=== PATIENT | male | born 1995 | race Caucasian/White ===

== ENCOUNTER 2017-03-24 20:03 | Emergency (ER) | payer OTHER ==
[2017-03-24] MEDS ORDERED: KETOROLAC 60 MG/2 ML VIAL IVP STA (20:43)
[2017-03-24] MEDS ORDERED: ONDANSETRON 4 MG/2 ML VIAL IVP STA (20:43)
[2017-03-24] MEDS ORDERED: LOPERAMIDE 2 MG CAPSULE PO STA ×2 (20:43→22:13)
[2017-03-24] MEDS ORDERED: SODIUM CHLORIDE 0.9% 1,000 ML IV ONE (20:43)
--- NOTE | 2017-03-24 20:45 | ED Physician Documentation ---
PD HPI NVD - Stated complaint Stated Complaint: ABD PX/VOMITING - Chief complaint Chief Complaint: Abd Pain - History obtained from History obtained from: Patient - History of Present Illness Timing - onset: Other (Previously healthy 22-year-old gentleman who at about 1130 this morning ate lobster bisque, clam chowder, salmon, and prime rib. Within the next hour and 1/2-2 hours he developed profuse vomiting and diarrhea with upper abdominal cramping. He has had some chills but no measured fevers. Nobody else that ate the same foods became ill. He has no sick contacts and no recent travel. No blood from either end.) Review of Systems Constitutional: reports: Chills, Fatigue, Sweats. denies: Fever Throat: denies: Sore throat Cardiac: denies: Chest pain / pressure, Palpitations Respiratory: denies: Dyspnea, Cough PD PAST MEDICAL HISTORY - Past Medical History Past Medical History: No - Past Surgical History Past Surgical History: No - Present Medications Home Medications: Ambulatory Orders Medication Instructions Recorded Confirmed Loperamide [Imodium] 2 mg PO QID PRN #10 capsule 03/24/17 Ondansetron HCl [Zofran] 4 mg PO Q6H PRN #10 tablet 03/24/17 - Allergies Allergies/Adverse Reactions: Allergies Allergy/AdvReac Type Severity Reaction Status Date / Time No Known Drug Allergies Allergy Verified 03/24/17 20:07 - Social History Does the pt smoke?: No Smoking Status: Never smoker Does the pt drink ETOH?: No Does the pt have substance abuse?: No - Immunizations Immunizations are current?: Yes - POLST Patient has POLST: No PD ED PE NORMAL - Vitals Vital signs reviewed: Yes - General General: Alert and oriented X 3, No acute distress - Cardiac Cardiac: RRR, No murmur - Respiratory Respiratory: No respiratory distress, Clear bilaterally - Abdomen Abdomen: Soft, Non tender - Extremities Extremities: No calf tenderness / cord - Neuro Neuro: Alert and oriented X 3, Normal speech - Psych Psych: Normal mood, Normal affect Results - Vitals Vitals: Vital Signs - 24 hr 03/24/17 03/24/17 20:05 21:37 Temperature 36.8 C 38.0 C H Heart Rate 94 75 Respiratory 16 12 Rate Blood Pressure 120/80 132/60 H O2 Saturation 99 100 Oxygen O2 Source Room air - Labs Labs: Laboratory Tests 03/24/17 21:00 Sodium 138 Potassium 4.2 Chloride 99 L Carbon Dioxide 26 Anion Gap 13.0 BUN 14 Creatinine 0.8 Estimated GFR (MDRD) 119 Glucose 97 Calcium 10.0 Total Bilirubin 0.6 AST 41 ALT 58 Alkaline Phosphatase 58 Total Protein 9.3 H Albumin 5.5 Globulin 3.8 Albumin/Globulin Ratio 1.4 Lipase 26 PD MEDICAL DECISION MAKING - ED course ED course: 22-year-old gentleman with an illness marked by nausea and vomiting but no abdominal tenderness. He was administered IV fluids, Zofran, and oral Imodium. On recheck at 9:47 PM he was much better and passed an oral challenge. He was nontender on recheck including to deep palpation in the right lower quadrant. Departure - Departure Disposition: ED Transfer to [facility] Clinical Impression: Gastroenteritis Condition: Good Record reviewed to determine appropriate education?: Yes Instructions: ED Gastroenteritis Viral Prescriptions: Loperamide [Imodium] 2 mg PO QID PRN #10 capsule PRN Reason: Diarrhea Ondansetron HCl [Zofran] 4 mg PO Q6H PRN #10 tablet PRN Reason: Nausea / Vomiting Comments: Return if not better in the next 12-24 hours or anytime if you run a high fever , or if the pain moves to the bottom right where I showed you. Your blood pressure was elevated today on check into the emergency department. This does not mean that you have hypertension, it is a common phenomenon to come to the emergency department and have elevated blood pressure. I recommend that you see your primary care physician within the week to have it rechecked when you are feeling better. Forms: Activity restrictions
[2017-03-24] MEDS ORDERED: LOPERAMIDE 2 MG CAPSULE PO ONE ×2 (20:51→22:19)
[2017-03-24] MEDS ORDERED: KETOROLAC 30 MG/ML VIAL ONE (20:51)
[2017-03-24] MEDS ORDERED: ONDANSETRON 4 MG/2 ML VIAL ONE (20:51)
[2017-03-24 21:33] LABS: ALBUMIN/GLOBULIN RATIO 1.4 (1.0-2.2); BILIRUBIN,TOTAL 0.6 mg/dL (0.2-1.0); CREATININE 0.8 mg/dL (0.6-1.2); POTASSIUM 4.2 mmol/L (3.5-5.0); TOTAL PROTEIN 9.3 g/dL (6.7-8.2)
[2017-03-24 21:38] VITALS: BP 132/60
== END 2017-03-24 22:20 | disposition home or self-care (01) ==
LOC: ED 20:03
DX: K52.9 Noninfective gastroenteritis and colitis, unspecified (principal); R03.0 Elevated blood-pressure reading, without diagnosis of hypertension
CPT/HCPCS: 36415; 80053; 83690; 96361; 96374; 96375; 99283; 99284; A9270

== ENCOUNTER 2020-12-19 09:01 | Emergency (ER) | payer OTHER ==
[2020-12-19 09:29] VITALS: BP 129/68
--- NOTE | 2020-12-19 11:04 | XRAY Report ---
PROCEDURE: Sacrum/Coccyx INDICATIONS: pain TECHNIQUE: 3 views of the sacrum and coccyx acquired. COMPARISON: None. FINDINGS: Bones: No fractures or dislocations. No suspicious bony lesions. Soft tissues: Visualized bowel gas pattern is normal. No suspicious soft tissue densities. IMPRESSION: No gross acute sacral or coccygeal fracture. Reviewed by: Darin Narayanan MD on 12/19/2020 11:02 AM PDT Approved by: Darin Narayanan MD on 12/19/2020 11:02 AM PDT Station ID: [id number]
--- NOTE | 2020-12-19 11:22 | ED Physician Documentation ---
History of Present Illness - Stated complaint Stated Complaint: TAIL BONE PX - Chief complaint Chief Complaint: Back Pain - History obtained from History obtained from: Patient - Additonal information Additional information: Patient comes emergency department chief complaint of "tailbone pain". He denies any direct injury but states that he was sitting on a hard surface with carpet over it for about an hour a couple of days ago and that things seem to start after this. Patient states he waited and thought it would just get better but that it seems more sore now than it was. No fevers or chills. Patient has not noticed swelling. No fluctuance or drainage around the area. No other complaints at this time. Review of Systems Ten Systems: 10 systems reviewed and negative Constitutional: reports: Reviewed and negative Eyes: reports: Reviewed and negative Ears: reports: Reviewed and negative Nose: reports: Reviewed and negative Throat: reports: Reviewed and negative Cardiac: reports: Reviewed and negative Respiratory: reports: Reviewed and negative GI: reports: Reviewed and negative : reports: Reviewed and negative Skin: reports: Reviewed and negative Musculoskeletal: reports: Reviewed and negative Neurologic: reports: Reviewed and negative Psychiatric: reports: Reviewed and negative Endocrine: reports: Reviewed and negative Immunocompromised: reports: Reviewed and negative PD PAST MEDICAL HISTORY - Past Medical History Past Medical History: No - Past Surgical History Past Surgical History: No - Present Medications Home Medications: Ambulatory Orders Medication Instructions Recorded Confirmed No Known Home Medications 12/19/20 12/19/20 - Allergies Allergies/Adverse Reactions: Allergies Allergy/AdvReac Type Severity Reaction Status Date / Time No Known Drug Allergies Allergy Verified 12/19/20 09:29 - Social History Does the pt smoke?: No Smoking Status: Never smoker Does the pt drink ETOH?: No Does the pt have substance abuse?: No - Immunizations Immunizations are current?: Yes - POLST Patient has POLST: No PD ED PE NORMAL - Vitals Vital signs reviewed: Yes - General General: Alert and oriented X 3, No acute distress, Well developed/nourished - HEENT HEENT: Atraumatic, PERRL, EOMI, Moist mucous membranes - Neck Neck: Supple, no meningeal sign - Cardiac Cardiac: RRR, No murmur, Strong equal pulses - Respiratory Respiratory: No respiratory distress, Clear bilaterally - Abdomen Abdomen: Soft, Non tender, Non distended - Back Back: Other (Tenderness palpation without edema, contusion, or erythema, over coccygeal area. No induration of skin. No fluctuance.) - Derm Derm: Normal color, Warm and dry, No rash - Extremities Extremities: No deformity, No edema, No calf tenderness / cord - Neuro Neuro: Alert and oriented X 3, manager administration 2-12 intact, Normal speech - Psych Psych: Normal mood, Normal affect Results - Vitals Vitals: Vital Signs - 24 hr 12/19/20 09:26 Temperature 36.4 C L Heart Rate 55 L Respiratory 16 Rate Blood Pressure 129/68 O2 Saturation 99 Oxygen O2 Source Room air - Rads (name of study) sacral/coccygeal xr Radiology: Final report received, EMP read indepedently, See rad report PD MEDICAL DECISION MAKING - ED course Complexity details: reviewed results, re-evaluated patient, considered differential, d/w patient ED course: X-ray of the patient's sacrococcygeal area was negative. There were no signs of infection apparent. I discussed symptomatic management with him, including ice, donut pillow, and anti-inflammatories. We have discussed the usual indications for follow-up and return. Departure - Departure Disposition: 01 Home, Self Care Clinical Impression: Sacral pain Condition: Stable Instructions: ED Contusion Sacrum Coccyx Comments: Your x-ray series looks good. There is no evidence of any bone pathology that is worrisome. Most likely, you have some inflammation around the tip of your coccyx or "tailbone". You may use ibuprofen and a donut pillow to help resolve this. Ice packs may also be helpful. Discharge Date/Time: 12/19/20 11:27
== END 2020-12-19 11:27 | disposition home or self-care (01) ==
LOC: ED 09:01
DX: M53.3 Sacrococcygeal disorders, not elsewhere classified (principal)
CPT/HCPCS: 99282; 99283